=== PATIENT | male | born 1990 | race Two or more races ===

== ENCOUNTER 2023-02-16 15:03 | Emergency (ER) | payer MEDICAID ==
[~2023-02-16] VITALS: Ht 182.9 cm; Wt 100.0 kg
[2023-02-16 17:13] VITALS: BP 122/83; PULSE 122; RESP 14; TEMP 97.8; O2SAT 99
== END 2023-02-16 19:00 | disposition home or self-care (01) ==
LOC: ER 15:04
DX: T40.411A Poisoning by fentanyl or fentanyl analogs, accidental (unintentional), initial encounter (principal); Y92.89 Other specified places as the place of occurrence of the external cause
CPT/HCPCS: 99283